=== PATIENT | female | born 1935 | race Caucasian/White ===

== ENCOUNTER 2020-07-14 05:42 | Inpatient (IN) | payer MEDICARE, OTHER ==
[~2020-07-14] VITALS: Ht 154.9 cm; Wt 55.3 kg
[2020-07-14 06:50] VITALS: BP 150/75
--- NOTE | 2020-07-14 06:51 | NUR ---
Rn notes: Received report from [facility] er [phone]. Pt direct admit from , brought to the unit via gurney accompanied by emt, arrived at 0635am. Pt a/o x1-2, FARSI SPEAKING ONLY, left ac g 20 iv access, patent and flushing well, on hl. Transferred to bed, kept comfortable. Per report, pt was brought to ER by daughter SHAY ([phone]), as pt fell last week, and since then been progressively noticing weakness, multiple falls at home, unsteady gait, with right hip joint pain. CT of lumbar spine performed in , shows acute subacute fracture of L3. Right hip CT shows femoral head of right hip collapsing. Accdg to report, [facility] recommending possible right hip replacement. List of medication given in in ER as follows: Morphine 2mg IVP 2300, Zofran 4mg ivp 2300, 500ml NS bolus. No atb given per report. Vs taken and recorded. Safety precautions for fall initiated, call light in reach, will endorse to day rn for completion of admission.
--- NOTE | 2020-07-14 07:45 | NUR ---
EXECUTIVE SEARCH CONSULTANT ADMITTING NOTES RECEIVED PATIENT REPORT FROM PREVIOUS SHIFT RN SKIP. PATIENT IS IN BED, AWAKE AND VERBALLY RESPONSIVE. A/O X2-3, FARSI-SPEAKING, ABLE TO SPEAK/UNDERSTAND SOME EQUATORIAL GUINEAN. SEEMS COMFORTABLE, QUIET, AND CALM AT THIS TIME. BREATHING EVEN AND UNLABORED ON ROOM AIR, NO SOB NOTED. ON TELEMONITORING, READING OF SR W/ HR AT MID 70'S, NO CARDIAC DISTRESS NOTED. SKIN IS INTACT, ONLY NOTED W/ SCAB ON LEFT HIP. IV ON LAC #20 INTACT AND PATENT. HOLGER BRAVO DNP, MADE AWARE OF PATIENT ADMISSION TO UNIT. FALL AND SAFETY PRECAUTIONS IN PLACE: BED LOCKED AND ON LOWEST POSITION, SR UP X3, CALL LIGHT W/IN REACH. WILL CONTINUE TO MONITOR PATIENT ACCORDINGLY.
[2020-07-14 08:09] LABS: BASOPHILS % (AUTO) 0.4 % (0.0-2.0); EOSINOPHILS % (AUTO) 0.6 % (0.0-6.0); HEMATOCRIT 30 % (33-45); HEMOGLOBIN 10.1 g/dL (11.5-14.8); LYMPHOCYTES # (AUTO) 0.6 /CMM (0.8-4.8); LYMPHOCYTES % (AUTO) 8.5 % (20.0-44.0); MEAN CORPUSCULAR HGB CONC 33 g/dl (31.0-36.0); MEAN CORPUSCULAR VOLUME 89 fL (82-100); MONOCYTES # (AUTO) 0.6 /CMM (0.1-1.30); NEUTROPHILS # (AUTO) 5.5 /CMM (1.8-8.9); NEUTROPHILS % (AUTO) 81.5 % (43.0-81.0); PLATELET COUNT (AUTO) 234 /CMM (150-450); WHITE BLOOD COUNT (AUTO) 6.7 K/uL (4.3-11.0)
[2020-07-14 08:31] LABS: ALBUMIN 2.9 g/dL (3.4-5.0); BILIRUBIN,TOTAL 0.4 mg/dL (0.2-1.0); CALCIUM, SERUM 8.9 mg/dL (8.5-10.1); PHOSPHORUS 3.2 mg/dL (2.5-4.9); POTASSIUM 4.3 mmol/L (3.5-5.1); TOTAL PROTEIN, SERUM 6.9 g/dL (6.4-8.2)
[2020-07-14] MEDS ORDERED: ICOS1CAP PO (08:43)
[2020-07-14] MEDS ORDERED: SIMV10TA98 PO (08:43)
[2020-07-14] MEDS ORDERED: ENAL2.5T17 PO (08:43)
[2020-07-14] MEDS ORDERED: ALEN70TA6 PO (08:43)
[2020-07-14] MEDS ORDERED: MELO-105 PO (08:43)
[2020-07-14] MEDS ORDERED: GABA-532 PO (08:43)
[2020-07-14] MEDS ORDERED: LEVO75TA7 PO (08:43)
[2020-07-14] MEDS ORDERED: METF-881 PO (08:43)
[2020-07-14] MEDS ORDERED: ESCI20TA PO (08:43)
[2020-07-14 08:54] VITALS: BP 150/75
--- NOTE | 2020-07-14 09:19 | NUR ---
WOUND CARE CONSULT: PT PRESENTS WITH DRY ABRASION TO RT HIP AREA, PRESENT ON ADMISSION. RECOMMENDATIONS MADE FOR SKIN PROTECTION. DISCUSSED WITH NURSING STAFF. WILL SEE PRN. [place] IN AGREEMENT WITH PLAN OF CARE. Addendum: 07/14/20 at 0920 by DECLAN ROSE WNDNU Amended: Links added.
--- NOTE | 2020-07-14 09:20 | NUR ---
RN NOTES PT SEEN BY WOUND NURSE DECLAN AND ORDERS MADE. WILL CONTINUE TO MONITOR
[2020-07-14] MEDS: Z GUARD REMEDY 2 OZ OINT TP SCH (09:39)
[2020-07-14] MEDS ORDERED: ASPI-1169 PO (10:07)
[2020-07-14] MEDS ORDERED: ENOXAPARIN SODIUM 40 MG/0.4 ML DISP.SYRIN SQ SCH (11:30)
[2020-07-14] MEDS ORDERED: ONDANSETRON HCL/PF 4 MG/2 ML VIAL IVP PRN (11:30)
[2020-07-14] MEDS ORDERED: Z GUARD REMEDY 2 OZ OINT TP PRN (11:30)
[2020-07-14] MEDS ORDERED: METFORMIN XR 500 MG TAB.SR.24H PO SCH (11:30)
[2020-07-14] MEDS ORDERED: MAGNESIUM HYDROXIDE 30 ML UDC PO PRN (11:30)
[2020-07-14] MEDS ORDERED: ACETAMINOPHEN 325 MG TABLET PO PRN (11:30)
[2020-07-14] MEDS ORDERED: ZOLPIDEM TARTRATE 5 MG TABLET PO PRN (11:30)
[2020-07-14] MEDS: MELOXICAM 7.5 MG TABLET PO SCH (12:16)
[2020-07-14] MEDS: ASPIRIN 81 MG TAB.CHEW PO SCH (12:17)
[2020-07-14] MEDS: LEVOTHYROXINE SODIUM 75 MCG TABLET PO SCH (12:17)
[2020-07-14] MEDS: ENALAPRIL MALEATE (5 MG) 5 MG TABLET PO SCH (12:18)
--- NOTE | 2020-07-14 14:30 | NUR ---
RN NOTES RECEIVED LACTIC ACID LEVEL OF 2.7 REPORTED BY GUERO SANDERS FROM THE LAB. HOLGER BRAVO DNP, MADE AWARE OF RESULT W/ ORDERS NOTED.
[2020-07-14] MEDS: IV NS 0.9% 1,000 ML IV PRN (14:31)
[2020-07-14 14:35] LABS: THYROID STIMULATING HORMONE 25.307 uIU/mL (0.358-3.74)
[2020-07-14] MEDS: VALSARTAN 80 MG TABLET PO SCH (14:44)
[2020-07-14] MEDS ORDERED: IV NS 0.9% 1,000 ML IV ONE (15:00)
[2020-07-14] MEDS ORDERED: DEXTROSE 50%-WATER 50 ML DISP.SYRIN IV PRN (15:00)
[2020-07-14] MEDS: HYDROCODONE/APAP 5/325MG TABLET PO PRN (15:56)
[2020-07-14 16:46] LABS: MAGNESIUM 2.1 mg/dL (1.8-2.4); PHOSPHORUS 3.4 mg/dL (2.5-4.9)
[2020-07-14] MEDS: BLOOD SUGAR DIAGNOSTIC 1 EACH STRIP IN SCH ×2 (17:21→22:24)
[2020-07-14] MEDS: INSULIN REGULAR, HUMAN 100 UNIT/ML 3 ML VIAL SQ PRN ×2 (17:24→22:24)
--- NOTE | 2020-07-14 17:39 | NUR ---
RN NOTES PT PULLED OUT HER IV LINE ON LEFT AC G#20, MINIMAL BLEEDING NOTED, DRY DRESSING APPLIED. nEW IV ACCESS INSERTED TO LEFT FA G#22 AND SECURED WITH TAPE. WILL CONTINUE TO MONITOR.
[2020-07-14] MEDS: GABAPENTIN 100 MG CAPSULE PO SCH (17:44)
[2020-07-14 17:52] LABS: APPEARANCE,URINE CLEAR (CLEAR); BILIRUBIN,URINE NEGATIVE (NEGATIVE); BLOOD, URINE SMALL Ery/uL (NEGATIVE); COLOR,URINE YELLOW (YELLOW); KETONES,URINE NEGATIVE (NEGATIVE); LEUKOCYTE ESTERASE ,URINE NEGATIVE (NEGATIVE); NITRITE, URINE NEGATIVE (NEGATIVE); PH,URINE 6.5 (5.0-8.0); PROTEIN,URINE NEGATIVE (NEGATIVE); UGLUCOSE NEGATIVE (NEGATIVE); UROBILINOGEN,URINE 0.2 EU/dL (0.2)
--- NOTE | 2020-07-14 18:00 | NUR ---
RN NOTES RECEIVED CRITICAL RESULT OF LACTIC ACID LEVEL OF 2.2 FROM TOWBOAT ENGINEER GEMA. INFORMED DR. BRAVO OF RESULT AND AWARE OF LACTIC ACID LEVEL.
[2020-07-14 18:27] LABS: BILIRUBIN,DIRECT 0.1 mg/dL (0.0-0.2)
--- NOTE | 2020-07-14 19:02 | NUR ---
SUPERVISOR HARVESTING CLOSING NOTES PATIENT ASLEEP AT THIS TIME, EASILY AWAKENED. HOB ELEVATED. A/O X2-3, FARSI-SPEAKING. BREATHING EVEN AND UNLABORED ON ROOM AIR, NO SOB NOTED. ON TELEMONITORING, READING OF SR W/ HR AT MID 70'S, NO CARDIAC DISTRESS NOTED. IV ON LEFT FOREARM #22 INTACT AND PATENT, IVF OF NS AT 60ML/HR INFUSING WELL. ALL NEEDS AND CARE PROVIDED WELL. FALL AND SAFETY PRECAUTIONS MAINTAINED: BED LOCKED AND ON LOWEST POSITION, SR UP X3, CALL LIGHT W/IN REACH. WILL ENDORSE JAYE TO TUBE ROLLER RN.
--- NOTE | 2020-07-14 19:16 | NUR ---
HOMOGENIZER OPERATOR: RECEIVED PATIENT Patient in bed, awake, A/O x2. Calm behavior at this time, episode of anxiety prior shift per Ray,RN. Sinus rhythm in the Tele monitor. LFA peripheral line, IVF infusing. Fall precaution maintained.
[2020-07-14 20:25] VITALS: BP 126/65
[2020-07-14] MEDS: SIMVASTATIN 10 MG TABLET PO SCH (21:14)
[2020-07-14] MEDS: ESCITALOPRAM OXALATE (10 MG) 10 MG TABLET PO SCH (21:14)
[2020-07-15 01:14] VITALS: BP 156/76
[2020-07-15] MEDS: HYDROCODONE/APAP 5/325MG TABLET PO PRN ×3 (05:05→20:06)
[2020-07-15] MEDS ORDERED: ALENDRONATE 70 MG TABLET PO SCH (06:00)
[2020-07-15] MEDS: INSULIN REGULAR, HUMAN 100 UNIT/ML 3 ML VIAL SQ PRN ×2 (06:49→11:47)
[2020-07-15] MEDS: BLOOD SUGAR DIAGNOSTIC 1 EACH STRIP IN SCH ×3 (06:50→17:16)
[2020-07-15 06:56] LABS: BASOPHILS % (AUTO) 0.7 % (0.0-2.0); EOSINOPHILS % (AUTO) 0.6 % (0.0-6.0); HEMATOCRIT 30 % (33-45); HEMOGLOBIN 9.9 g/dL (11.5-14.8); LYMPHOCYTES # (AUTO) 0.7 /CMM (0.8-4.8); LYMPHOCYTES % (AUTO) 9.2 % (20.0-44.0); MEAN CORPUSCULAR HGB CONC 33 g/dl (31.0-36.0); MEAN CORPUSCULAR VOLUME 89 fL (82-100); MONOCYTES # (AUTO) 0.7 /CMM (0.1-1.30); MONOCYTES % (AUTO) 9.4 % (2.0-12.0); NEUTROPHILS % (AUTO) 80.1 % (43.0-81.0); PLATELET COUNT (AUTO) 232 /CMM (150-450); RED BLOOD CELL COUNT(AUTO) 3.32 MIL/uL (4.0-5.2); WHITE BLOOD COUNT (AUTO) 7.5 K/uL (4.3-11.0)
--- NOTE | 2020-07-15 06:56 | NUR ---
VENEER DEPARTMENT MANAGER: END OF SHIFT REPORT Patient in bed, slept well. Sinus rhythm in the Tele monitor. Back/hip pain controlled with PRN [place] with relief. IVF infusing. NWB RLE, no surgical intervention at this time per Ortho. Fall precaution maintained. Will endorse to oncoming RN.
[2020-07-15 07:20] LABS: CALCIUM, SERUM 8.4 mg/dL (8.5-10.1); MAGNESIUM 1.8 mg/dL (1.8-2.4); PHOSPHORUS 2.9 mg/dL (2.5-4.9); POTASSIUM 3.9 mmol/L (3.5-5.1)
--- NOTE | 2020-07-15 07:33 | NUR ---
OIL REFINERY OPERATOR OPENING NOTES RECEIVED PATIENT IN BED, AWAKE, A/O X2. PATIENT ON ROOM AIR; BREATHING IS EVEN AND UNLABORED; NO SOB NOTED AT THIS TIME. MILD PAIN PRESENT. TELE MONITOR WITH A CURRENT READING OF SINUS RHYTHM 91 BPM. LFA IV ACCESS G # 22 PRESENT AND INTACT. LEVI CATH INTACT. SAFETY PRECAUTIONS IN PLACE; BED IN LOW POSITION AND LOCKED, RAILS UP X2, CALL LIGHT WITHIN REACH. WILL CONTINUE TO MONITOR PATIENT.
[2020-07-15 08:00] VITALS: BP 137/71
[2020-07-15] MEDS: Z GUARD REMEDY 2 OZ OINT TP SCH (08:01)
[2020-07-15] MEDS: ASPIRIN 81 MG TAB.CHEW PO SCH (08:29)
[2020-07-15] MEDS: VALSARTAN 80 MG TABLET PO SCH (08:29)
[2020-07-15] MEDS: GABAPENTIN 100 MG CAPSULE PO SCH ×2 (08:29→16:45)
[2020-07-15] MEDS: MELOXICAM 7.5 MG TABLET PO SCH (08:29)
[2020-07-15] MEDS: ENALAPRIL MALEATE (5 MG) 5 MG TABLET PO SCH (08:29)
[2020-07-15] MEDS: LEVOTHYROXINE SODIUM 75 MCG TABLET PO SCH (08:29)
[2020-07-15] MEDS: IV NS 0.9% 1,000 ML IV PRN (10:21)
[2020-07-15] MEDS ORDERED: HYDR-3972 PO (11:26)
[2020-07-15] MEDS ORDERED: VALS80TA2 PO (11:26)
[2020-07-15] MEDS ORDERED: ENOX40DI SQ (11:26)
[2020-07-15 12:00] VITALS: BP 135/64
[2020-07-15 12:05] LABS: ALBUMIN 2.5 g/dL (3.4-5.0); BILIRUBIN,TOTAL 0.5 mg/dL (0.2-1.0); CALCIUM, SERUM 8.5 mg/dL (8.5-10.1); POTASSIUM 4.1 mmol/L (3.5-5.1); TOTAL PROTEIN, SERUM 6.6 g/dL (6.4-8.2)
[2020-07-15] MEDS ORDERED: LIDOCAINE 1% INJ 50 ML MDV IJ ONE (13:40)
[2020-07-15] MEDS: SOD FERRIC GLUC 125 MG in IV NS 0.9% 100 ML IV SCH (14:59)
[2020-07-15 16:00] VITALS: BP 154/78
--- NOTE | 2020-07-15 18:35 | NUR ---
HELP DESK CONSULTANT CLOSING NOTES PATIENT IN BED, AWAKE, A/O X2. PATIENT ON ROOM AIR; BREATHING IS EVEN AND UNLABORED; NO SOB NOTED DURING SHIFT. MILD PAIN PRESENT AT THIS TIME AND PAIN TREATED WITH PRN MEDICATIONS DURING THE DAY. LFA IV ACCESS G # 22 PRESENT AND INTACT. LEVI CATH INTACT WITH AN OUTPUT OF 1100 MLS. ALL NEEDS ATTENDED DURING THE DAY. SAFETY PRECAUTIONS IN PLACE; BED IN LOW POSITION AND LOCKED, RAILS UP X2, CALL LIGHT WITHIN REACH. WILL ENDORSE TO FRONT OFFICE COORDINATOR NURSE.
[2020-07-15 20:00] VITALS: BP 155/79
--- NOTE | 2020-07-15 20:09 | NUR ---
MS/TELE/RN PATIENT JUST CAME BACK FROM CT FOR CT OF ABDOMEN. PATIENT IS AWAKE, ALERT, AND ORIENTED, C/O RT. ABDOMEN AND RIGHT LOWER EXTREMITY PAIN, MEDICATED WITH NORCO 1 TABLET PO ORDERED. WILL MONITOR.
[2020-07-16] MEDS: BLOOD SUGAR DIAGNOSTIC 1 EACH STRIP IN SCH ×5 (02:35→22:07)
[2020-07-16] MEDS: SIMVASTATIN 10 MG TABLET PO SCH ×2 (02:35→22:07)
[2020-07-16] MEDS: ESCITALOPRAM OXALATE (10 MG) 10 MG TABLET PO SCH ×2 (02:36→22:08)
[2020-07-16] MEDS: HYDROCODONE/APAP 5/325MG TABLET PO PRN ×2 (05:47→14:38)
[2020-07-16] MEDS: IV NS 0.9% 1,000 ML IV PRN ×2 (05:53→22:16)
--- NOTE | 2020-07-16 06:12 | NUR ---
MS/TELE/RN PATIENT IS SLEEPING AT THIS TIME, APPEAR COMFORTABLE, NO DISTRESS NOTED, CALL LIGHT IN REACH, ALL NEEDS ATTENDED AT THIS TIME, GOOD SLEEP NOTED THE WHOLE SHIFT, CALL LIGHT WITHIN REACH, WILL CONTINUE TO MONITOR.
[2020-07-16] MEDS: INSULIN REGULAR, HUMAN 100 UNIT/ML 3 ML VIAL SQ PRN ×3 (06:30→22:09)
--- NOTE | 2020-07-16 07:47 | NUR ---
RN OPEN NOTES PATIENT IS SLEEPING A/O X 1 WITH NO SIGNS OF DISTRESS IN ROOM AIR. L #22G INTACT RUNNING NS AT 60 ML/HR. NO SIGNS OF PAIN AT THIS MOMENT. LEVI CATHETER INTACT. SAFETY MEASURES ARE APPLIED, BED IS LOW AND LOCKED POSITION. SIDE RAILS UP X 2 FOR SAFETY. CALL LIGHT WITHIN REACH. WILL CONTINUE TO MONITOR.
[2020-07-16 08:00] VITALS: BP 142/69
[2020-07-16 08:21] LABS: BASOPHILS # (AUTO) 0.1 /CMM (0.0-0.2); BASOPHILS % (AUTO) 0.7 % (0.0-2.0); EOSINOPHILS % (AUTO) 1.5 % (0.0-6.0); HEMATOCRIT 29 % (33-45); HEMOGLOBIN 9.7 g/dL (11.5-14.8); LYMPHOCYTES # (AUTO) 0.8 /CMM (0.8-4.8); LYMPHOCYTES % (AUTO) 10.9 % (20.0-44.0); MEAN CORPUSCULAR HGB CONC 33 g/dl (31.0-36.0); MEAN CORPUSCULAR VOLUME 90 fL (82-100); MONOCYTES # (AUTO) 0.7 /CMM (0.1-1.30); MONOCYTES % (AUTO) 9.1 % (2.0-12.0); NEUTROPHILS % (AUTO) 77.8 % (43.0-81.0); PLATELET COUNT (AUTO) 252 /CMM (150-450); RED BLOOD CELL COUNT(AUTO) 3.23 MIL/uL (4.0-5.2); WHITE BLOOD COUNT (AUTO) 7.7 K/uL (4.3-11.0)
[2020-07-16] MEDS: GABAPENTIN 100 MG CAPSULE PO SCH ×2 (08:37→17:40)
[2020-07-16] MEDS: VALSARTAN 80 MG TABLET PO SCH (08:37)
[2020-07-16] MEDS: ASPIRIN 81 MG TAB.CHEW PO SCH (08:38)
[2020-07-16] MEDS: LEVOTHYROXINE SODIUM 75 MCG TABLET PO SCH (08:38)
[2020-07-16] MEDS: ENALAPRIL MALEATE (5 MG) 5 MG TABLET PO SCH (08:38)
[2020-07-16] MEDS: MELOXICAM 7.5 MG TABLET PO SCH (08:39)
[2020-07-16] MEDS: Z GUARD REMEDY 2 OZ OINT TP PRN (08:39)
[2020-07-16] MEDS: Z GUARD REMEDY 2 OZ OINT TP SCH (08:51)
[2020-07-16 09:38] LABS: CALCIUM, SERUM 8.6 mg/dL (8.5-10.1); CREATININE 0.9 mg/dL (0.6-1.3); MAGNESIUM 1.8 mg/dL (1.8-2.4); PHOSPHORUS 3.2 mg/dL (2.5-4.9); POTASSIUM 3.9 mmol/L (3.5-5.1)
[2020-07-16] MEDS: SOD FERRIC GLUC 125 MG in IV NS 0.9% 100 ML IV SCH (15:54)
[2020-07-16 16:00] VITALS: BP 142/69
[2020-07-16] MEDS: MORPHINE SULFATE INJ 2 MG/ML DISP.SYRIN IV PRN (17:40)
--- NOTE | 2020-07-16 17:50 | NUR ---
PATIENT IN PAIN MORPHINE WAS GIVEN VITAL SIGNS ARE STABLE BP 142/69 HR 79 SPO2 95% . WILL CONTINUE TO MONITOR.
--- NOTE | 2020-07-16 19:16 | NUR ---
RN CLOSED NOTES PATIENT IS A/O X 1. NO SIGNS OF DISTRESS IN ROOM AIR. NO SIGNS OF PAIN AT THIS MOMENT. IV L FA#22G INTACT RUNNING NS AT 60 ML/HR. LEVI CATHETER INTACT. PATIENT KEPT CLEAN AND DRY. ALL NEEDS, CARE, TREATMENT AND MEDICATIONS ADMINISTERED ANTICIPATED PER ORDER. SAFETY MEASURES ARE APPLIED, BED IS LOW AND LOCKED POSITION. SIDE RAILS UP X 2 FOR SAFETY. CALL LIGHT WITHIN REACH. WILL ENDORSE TO THE NEXT DUMP GRADER.
[2020-07-16 20:00] VITALS: BP 157/87
--- NOTE | 2020-07-16 20:21 | NUR ---
yarn spooler: received report from [facility]. pt a/o x1, farsi speaking, speaks a little hebrew, make her needs known. pt a/o x1 to self only. on ra respiration even and unlabored. iv access patent and flushing well, infusing with ns at 60ml/hr. márquez catheter in placed, bag draining via gravity, tubing free from kinks. pt looking for her cards and purse, help and assisted pt and go through all her bag and belongings, checked the inventory of belonging list, but nothing recorded for credit cards. reorientation provided to pt. ortho saw pt, no sx indicated at this time. last morphine administered at 1444. safety precautions for fall initiated, call light in reach, will continue monitoring pt.
[2020-07-16 20:27] VITALS: BP 157/87
[2020-07-17] VITALS: BP 133/65
[2020-07-17] MEDS: MORPHINE SULFATE INJ 2 MG/ML DISP.SYRIN IV PRN ×2 (03:44→15:04)
--- NOTE | 2020-07-17 03:45 | NUR ---
prn morphine: pt crying pointing hand rubbing her right hip, ps 8/10 prn morphine 2mg ivp administered at this time
--- NOTE | 2020-07-17 04:30 | NUR ---
rn notes: assisted academic affairs director in providing bed bath and complete linen change to pt.
[2020-07-17] MEDS: Z GUARD REMEDY 2 OZ OINT TP PRN (05:30)
--- NOTE | 2020-07-17 05:31 | NUR ---
rn notes: seen pt sleeping, appears calm and comfortable. no facial grimace noted., will monitor accordingly
[2020-07-17] MEDS: BLOOD SUGAR DIAGNOSTIC 1 EACH STRIP IN SCH ×4 (06:21→22:36)
[2020-07-17] MEDS: INSULIN REGULAR, HUMAN 100 UNIT/ML 3 ML VIAL SQ PRN ×3 (06:22→16:42)
--- NOTE | 2020-07-17 06:46 | NUR ---
End of shift report: Prn morphine administered for c/o right hip pain. Pt remains a/o x1, on ra. Am care provided to pt. iv access remains patent and flushing well, infusing with ns at 60ml/hr, no s/s of iv infiltration noted. Holman catheter remains in placed. Accu check performed as ordered. Plan of care is eval to snf vs aru. Vs remains stable, needs attended. Safety precautions for fall remains engaged, call light in reach, will endorse to day rn for lloyd.
[2020-07-17 08:00] VITALS: BP 145/84
--- NOTE | 2020-07-17 08:03 | NUR ---
RN OPEN NOTES PATIENT IS A/O X 1 WITH NO SIGNS OF DISTRESS IN ROOM AIR. L #22G INTACT RUNNING NS AT 60 ML/HR. NO SIGNS OF PAIN AT THIS MOMENT. LEVI CATHETER INTACT. SAFETY MEASURES ARE APPLIED, BED IS LOW AND LOCKED POSITION. SIDE RAILS UP X 2 FOR SAFETY. CALL LIGHT WITHIN REACH. WILL CONTINUE TO MONITOR.
[2020-07-17] MEDS: ASPIRIN 81 MG TAB.CHEW PO SCH (08:50)
[2020-07-17] MEDS: VALSARTAN 80 MG TABLET PO SCH (08:50)
[2020-07-17] MEDS: ENALAPRIL MALEATE (5 MG) 5 MG TABLET PO SCH (08:51)
[2020-07-17] MEDS: LEVOTHYROXINE SODIUM 75 MCG TABLET PO SCH (08:51)
[2020-07-17] MEDS: GABAPENTIN 100 MG CAPSULE PO SCH ×2 (08:51→16:40)
[2020-07-17] MEDS: Z GUARD REMEDY 2 OZ OINT TP SCH (08:52)
[2020-07-17] MEDS: MELOXICAM 7.5 MG TABLET PO SCH (08:54)
[2020-07-17] MEDS: HYDROCODONE/APAP 5/325MG TABLET PO SCH ×2 (11:37→17:15)
[2020-07-17] MEDS: SOD FERRIC GLUC 125 MG in IV NS 0.9% 100 ML IV SCH (14:52)
--- NOTE | 2020-07-17 14:56 | NUR ---
Dairy Feed Sales Consultant consult requested by Leigh Mckinney DNP on 07/15 per patient's daughter request for assistance with Durable Power of Web Content & Social Media Manager and advanced healthcare directive. CRISPIN contacted daughter Sameer [phone]. Per Sameer, she will be arriving to [facility] with a Farsi speaking notary to have the patient sign official documentations. Daughter Sameer, informed this SW that Leigh Mckinney DNP and Case Management team was aware of this request. CRISPIN informed [facility] that this SW will also be present.
[2020-07-17 16:00] VITALS: BP 165/77
--- NOTE | 2020-07-17 16:03 | NUR ---
Patient was alert and oriented x4 with daughter and Farsi speaking Notary to sign durable power of investigator.
[2020-07-17] MEDS ORDERED: HYDROCODONE/APAP 5/325MG TABLET PO PRN (17:30)
[2020-07-17] MEDS ORDERED: VALSARTAN 80 MG TABLET PO SCH (18:00)
--- NOTE | 2020-07-17 18:26 | NUR ---
RN CLOSED NOTES PATIENT IS A/O X 1. NO SIGNS OF DISTRESS IN ROOM AIR. NO SIGNS OF PAIN AT THIS MOMENT. IV L FA#22G. LEVI CATHETER INTACT. PATIENT KEPT CLEAN AND DRY. ALL NEEDS, CARE, TREATMENT AND MEDICATIONS ADMINISTERED ANTICIPATED PER ORDER. SAFETY MEASURES ARE APPLIED, BED IS LOW AND LOCKED POSITION. SIDE RAILS UP X 2 FOR SAFETY. CALL LIGHT WITHIN REACH. WILL ENDORSE TO THE NEXT WEAVING MACHINE OPERATOR.
[2020-07-17 19:50] VITALS: BP 153/73
--- NOTE | 2020-07-17 20:23 | NUR ---
MS/TELE/RN DURING INITIAL ASSESSMENT, PATIENT WAS ON BED APPEAR SLEEPING, APPEAR COMFORTABLE, NO SIGNS OF DISTRESS NOTED, CALL LIGHT IN REACH, FALL PRECAUTIONS PER PROTOCOL, WILL MONITOR.
[2020-07-17] MEDS: ESCITALOPRAM OXALATE (10 MG) 10 MG TABLET PO SCH (22:36)
[2020-07-18] MEDS: INSULIN REGULAR, HUMAN 100 UNIT/ML 3 ML VIAL SQ PRN ×2 (06:22→12:31)
[2020-07-18] MEDS: BLOOD SUGAR DIAGNOSTIC 1 EACH STRIP IN SCH ×3 (06:23→16:47)
--- NOTE | 2020-07-18 06:42 | NUR ---
MS/TELE/RN PATIENT IS AWAKE, COMFORTABLE, NO DISTRESS NOTED, SLEPT WELL THE WHOLE SHIFT, ALL NEEDS ATTENDED AT THIS TIME, WILL CONTINUE TO MONITOR.
--- NOTE | 2020-07-18 07:30 | NUR ---
RN OPENING NOTES PATIENT IN BED RESTING. NOT IN ANY FORM OF DISTRESS. NO SOB. IV ACCESS INTACT AND PATENT. KEPT PATIENT SAFE AND COMFORTABLE. BED IN LOW/LOCKED POSITION, SIDERAILS UPX2,CALL LIGHT IN REACH. WILL CONT TO MONIOTR ACCORDINGLY
[2020-07-18 08:00] VITALS: BP 172/74
[2020-07-18] MEDS: VALSARTAN 80 MG TABLET PO SCH (08:05)
[2020-07-18] MEDS: GABAPENTIN 100 MG CAPSULE PO SCH ×2 (08:06→16:09)
[2020-07-18] MEDS: ENALAPRIL MALEATE (5 MG) 5 MG TABLET PO SCH (08:06)
[2020-07-18] MEDS: LEVOTHYROXINE SODIUM 75 MCG TABLET PO SCH (08:06)
[2020-07-18] MEDS: ASPIRIN 81 MG TAB.CHEW PO SCH (08:08)
[2020-07-18] MEDS: MORPHINE SULFATE INJ 2 MG/ML DISP.SYRIN IV PRN ×2 (08:09→15:00)
--- NOTE | 2020-07-18 08:09 | NUR ---
rn notes patient complaints of hip pain 07/15. Morphine 2mg iv given as ordered.
[2020-07-18] MEDS: MELOXICAM 7.5 MG TABLET PO SCH (08:10)
[2020-07-18] MEDS: Z GUARD REMEDY 2 OZ OINT TP SCH (09:05)
[2020-07-18] MEDS ORDERED: NITROGLYCERIN 30 GM TUBE TP SCH (09:30)
[2020-07-18] MEDS: hydrALAZINE HCL 50 MG TABLET PO SCH ×3 (10:04→16:09)
[2020-07-18] MEDS: SOD FERRIC GLUC 125 MG in IV NS 0.9% 100 ML IV SCH (14:45)
--- NOTE | 2020-07-18 15:30 | NUR ---
RN NOTES PATIENT FACETIMED WITH DAUGHTER.
[2020-07-18 16:09] VITALS: BP 159/88
--- NOTE | 2020-07-18 18:00 | NUR ---
discharged patient in stable condition picked up by ambulance crew. report given to Nessa from [facility],ct instructions given, verbalized understanding. iv access removed, applied pressure, no complications. name band removed. dc paperwork and prescriptions and educational materials handed to ambulance crew. all belongings returned, handed all belongings to daughter including iphone corn shredder, ipad, purse, old cellphone. Daughter checked belongings before leaving the hospital. All belongings inside daughter's car.
[2020-07-19 08:07] LABS: IMMUNOGLOBULIN A, SERUM 216 mg/dL (64-422); IMMUNOGLOBULIN G, SERUM 979 mg/dL (586-1602); IMMUNOGLOBULIN M, SERUM 61 mg/dL (26-217)
[2020-07-19 15:06] LABS: *SPE A/G RATIO 0.8 (0.7-1.7); *SPE ALBUMIN 2.5 g/dL (2.9-4.4); *SPE ALPHA-1-GLOBULIN 0.4 g/dL (0.0-0.4); *SPE ALPHA-2-GLOBULIN 1.1 g/dL (0.4-1.0); *SPE BETA GLOBULIN 0.9 g/dL (0.7-1.3); *SPE GLOBULIN, TOTAL 3.3 g/dL (2.2-3.9); *SPE M-SPIKE Not Observed g/dL (Not Observed); *SPEGAMMA GLOBULIN 0.9 g/dL (0.4-1.8)
== END 2020-07-18 18:00 | DRG 554 ==
LOC: TELE 06:32 → MED 07-15 17:16
PROVIDERS: ADMIT Nurse Practitioner Acute Care; ATTEND Student in an Organized Health Care Education/Training Program
DX: M87.051 Idiopathic aseptic necrosis of right femur (principal); E44.1 Mild protein-calorie malnutrition; C79.51 Secondary malignant neoplasm of bone; E87.2 Acidosis; C77.2 Secondary and unspecified malignant neoplasm of intra-abdominal lymph nodes; D68.69 Other thrombophilia; C64.2 Malignant neoplasm of left kidney, except renal pelvis; M84.451A Pathological fracture, right femur, initial encounter for fracture; E86.0 Dehydration; D50.9 Iron deficiency anemia, unspecified; I10 Essential (primary) hypertension; E78.5 Hyperlipidemia, unspecified; Z66 Do not resuscitate; Z91.81 History of falling; D64.9 Anemia, unspecified; E88.09 Other disorders of plasma-protein metabolism, not elsewhere classified; Z79.84 Long term (current) use of oral hypoglycemic drugs; R74.01 Elevation of levels of liver transaminase levels; Z68.23 Body mass index [BMI] 23.0-23.9, adult; R29.6 Repeated falls; E11.9 Type 2 diabetes mellitus without complications; Z51.5 Encounter for palliative care
CPT/HCPCS: 36415; 71045-TC; 72170-TC; 73502; 76700-TC; 80048-TC; 80053-TC; 80061-TC; 81000-TC; 82248-TC; 82728-TC; 82784; 82962-TC; 83540-TC; 83605-TC; 83735-TC; 84100-TC; 84155; 84165; 84439-TC; 84443-TC; 85025-TC; 86334; 87081-TC; 93307-TC; 97110-TC; 97116-TC; 97530-TC; G0378; J1815; J2270; J2405; J2916; J3490; J7030